=== PATIENT | female | born 2000 | race Caucasian/White ===

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

== ENCOUNTER → 2021-09-14 | Outpatient (CLI) | payer MEDICAID ==
[2021-09-14 18:45] LABS: BASO # 0.1 10^3/uL (0.0-0.2); BASO % 0.5 % (0.0-1.0); EOS # 0.1 10^3/uL (0.0-0.5); EOS % 0.5 % (0.0-3.0); HEMOGLOBIN 12.5 g/dl (12.0-15.5); LYMPH # 1.9 10^3/uL (1.5-5.0); LYMPH % 19.6 % (24.0-44.0); MEAN CORPUSCULAR HEMOGLOBIN 30.3 pg (27.0-33.0); MEAN CORPUSCULAR HGB CONC 32.9 g/dl (32.0-36.5); MEAN CORPUSCULAR VOLUME 92.2 fl (80.0-96.0); NEUTROPHILS # 6.6 10^3/uL (1.5-8.5); NEUTROPHILS % 69.1 % (36.0-66.0); PLATELET COUNT, AUTOMATED 319 10^3/uL (150-450); RED BLOOD COUNT 4.12 10^6/uL (4.00-5.40); WHITE BLOOD COUNT 9.5 10^3/uL (4.0-10.0)
[2021-09-14 18:59] LABS: HIV 1&2 SCREEN CENTAUR NEGATIVE (NEGATIVE)
[2021-09-14 19:47] LABS: GC DNA AMPLIFICATION NEGATIVE (NEGATIVE)
== END ==
LOC: M PLALAB 15:15
PROVIDERS: ATTEND Advanced Practice Midwife
DX: Z34.01 Encounter for supervision of normal first pregnancy, first trimester (principal); Z36.89 Encounter for other specified antenatal screening

== ENCOUNTER → 2021-12-02 | Outpatient (CLI) | payer OTHER | LOC: M WHC 14:32 | PROVIDERS: ATTEND Advanced Practice Midwife | DX: Z34.02 Encounter for supervision of normal first pregnancy, second trimester (principal); Z3A.19 19 weeks gestation of pregnancy; Z36.89 Encounter for other specified antenatal screening ==

== ENCOUNTER → 2022-01-25 | Outpatient (CLI) | payer OTHER | LOC: M WHC 08:06 | PROVIDERS: ATTEND Advanced Practice Midwife | DX: O99.212 Obesity complicating pregnancy, second trimester (principal); E66.9 Obesity, unspecified; O32.1XX0 Maternal care for breech presentation, not applicable or unspecified; Z3A.27 27 weeks gestation of pregnancy ==

== ENCOUNTER → 2022-02-23 | Outpatient (CLI) | payer OTHER ==
[2022-02-23 14:39] LABS: HEMATOCRIT 32.8 % (36.0-47.0); HEMOGLOBIN 10.3 g/dl (12.0-15.5); MEAN CORPUSCULAR HEMOGLOBIN 28.5 pg (27.0-33.0); MEAN CORPUSCULAR HGB CONC 31.4 g/dl (32.0-36.5); MEAN CORPUSCULAR VOLUME 90.6 fl (80.0-96.0); PLATELET COUNT, AUTOMATED 275 10^3/uL (150-450); RED BLOOD COUNT 3.62 10^6/uL (4.00-5.40); WHITE BLOOD COUNT 11.5 10^3/uL (4.0-10.0)
[2022-02-23 15:47] LABS: GC DNA AMPLIFICATION NEGATIVE (NEGATIVE)
== END ==
LOC: M PLALAB 09:03
PROVIDERS: ATTEND Specialist
DX: Z34.02 Encounter for supervision of normal first pregnancy, second trimester (principal); Z36.89 Encounter for other specified antenatal screening

== ENCOUNTER → 2022-03-24 | Outpatient (CLI) | payer OTHER, MEDICAID ==
[2022-03-24 18:25] LABS: ALBUMIN 2.5 GM/DL (3.2-5.2); ALT/SGPT 83 U/L (12-78); BILIRUBIN,TOTAL 0.5 MG/DL (0.2-1.0); BLOOD UREA NITROGEN 5 MG/DL (7-18); CARBON DIOXIDE LEVEL 21 MEQ/L (21-32); CHLORIDE LEVEL 105 MEQ/L (98-107); CREATININE FOR GFR 0.39 MG/DL (0.55-1.30); GLOMERULAR FILTRATION RATE > 60.0 (>60); GLUCOSE, FASTING 95 MG/DL (70-100); POTASSIUM SERUM 3.6 MEQ/L (3.5-5.1); SODIUM LEVEL 137 MEQ/L (136-145); TOTAL PROTEIN 6.4 GM/DL (6.4-8.2)
== END ==
LOC: M PLALAB 14:39
PROVIDERS: ATTEND Advanced Practice Midwife
DX: Z34.03 Encounter for supervision of normal first pregnancy, third trimester (principal); O99.713 Diseases of the skin and subcutaneous tissue complicating pregnancy, third trimester

== ENCOUNTER 2022-03-28 12:39 | Outpatient (CLI) | payer OTHER, MEDICAID ==
[~2022-03-28] VITALS: Ht 157.5 cm; Wt 88.9 kg
[2022-03-28 12:54] VITALS: BP 128/83
[2022-03-28] MEDS ORDERED: URSO300C3 PO (12:57)
[2022-03-28] MEDS ORDERED: FERR325T82 PO (12:57)
[2022-03-28] MEDS ORDERED: PRENTAB9 PO (12:57)
[2022-03-28] MEDS ORDERED: HOME MED LIST COMPLETE! XX SCH (13:00)
[2022-03-28] MEDS ORDERED: BETAMETHASONE SOLUSPAN 6MG/ML 5ML VIAL (J0702 PER 3MG) IM ONE (13:05)
[2022-03-29] MEDS ORDERED: BENA25CA4 PO (13:10)
== END 2022-03-28 13:43 | disposition home or self-care (01) ==
LOC: M LDO 12:39
PROVIDERS: ATTEND Obstetrics & Gynecology
DX: O26.613 Liver and biliary tract disorders in pregnancy, third trimester (principal); Z3A.36 36 weeks gestation of pregnancy; Z91.018 Allergy to other foods
CPT/HCPCS: 59025; 96372; J0702

== ENCOUNTER 2022-03-29 12:56 | Outpatient (CLI) | payer OTHER, MEDICAID ==
[~2022-03-29] VITALS: Ht 157.5 cm; Wt 89.0 kg
[~2022-03-29 12:56] MED LIST changes: +FERR325T82 PO; +PRENTAB9 PO; -PROHANCE 279.3MG/ML 15ML VIAL (A9576) As Ordered ONE; +URSO300C3 PO
[2022-03-29] MEDS ORDERED: BETAMETHASONE SOLUSPAN 6MG/ML 5ML VIAL (J0702 PER 3MG) IM ONE (13:05)
[2022-03-29] MEDS ORDERED: BENA25CA4 PO (13:10)
[2022-03-29] MEDS ORDERED: HOME MED LIST COMPLETE! XX SCH (13:10)
[2022-03-29 13:12] VITALS: BP 120/77
== END 2022-03-29 14:42 | disposition home or self-care (01) ==
LOC: M LDO 12:56
PROVIDERS: ATTEND Advanced Practice Midwife
DX: O26.613 Liver and biliary tract disorders in pregnancy, third trimester (principal); Z3A.36 36 weeks gestation of pregnancy
CPT/HCPCS: 76816; 76819; 76820; 96372; J0702

== ENCOUNTER → 2022-12-06 | Outpatient (REF) | payer OTHER, MEDICAID ==
[~2022-12-06] MED LIST changes: +ACET-683 PO; +BENA25CA4 PO; +COLA100C5 PO; +IBUP-1022 PO
== END ==
LOC: M SFHCWAGY 12:53
PROVIDERS: ATTEND Specialist
DX: Z12.4 Encounter for screening for malignant neoplasm of cervix (principal)

== ENCOUNTER → 2022-12-31 | Outpatient (CLI) | payer OTHER ==
[~2022-12-31] MED LIST changes: +PROHANCE 279.3MG/ML 15ML VIAL As Ordered ONE; +PROHANCE 279.3MG/ML 5ML VIAL As Ordered ONE
== END ==
LOC: M RAD 14:38
PROVIDERS: ATTEND Specialist
DX: M51.26 Other intervertebral disc displacement, lumbar region (principal)
CPT/HCPCS: 72158; A9576

== ENCOUNTER → 2023-04-08 | Outpatient (CLI) | payer OTHER ==
[~2023-04-08] MED LIST changes: -PROHANCE 279.3MG/ML 15ML VIAL As Ordered ONE; -PROHANCE 279.3MG/ML 5ML VIAL As Ordered ONE
[2023-04-08 14:28] LABS: HEMATOCRIT 38.5 % (36.0-47.0); HEMOGLOBIN 12.3 g/dl (12.0-15.5); MEAN CORPUSCULAR HEMOGLOBIN 29.4 pg (27.0-33.0); MEAN CORPUSCULAR HGB CONC 31.9 g/dl (32.0-36.5); MEAN CORPUSCULAR VOLUME 92.1 fl (80.0-96.0); PLATELET COUNT, AUTOMATED 312 10^3/uL (150-450); RED BLOOD COUNT 4.18 10^6/uL (4.00-5.40); WHITE BLOOD COUNT 9.5 10^3/uL (4.0-10.0)
[2023-04-08 14:59] LABS: HIV 1&2 SCREEN NEGATIVE (NEGATIVE)
[2023-04-08 15:07] LABS: HEPATITIS C VIRUS ABY INDEX 0.11 INDEX (<0.8)
[2023-04-08 15:54] LABS: GC DNA AMPLIFICATION NEGATIVE (NEGATIVE)
== END ==
LOC: M PLALAB 10:44
PROVIDERS: ATTEND Advanced Practice Midwife
DX: Z34.91 Encounter for supervision of normal pregnancy, unspecified, first trimester (principal)

== ENCOUNTER → 2023-04-19 | Outpatient (CLI) | payer OTHER ==
[2023-04-19 16:27] LABS: BASO % 0.4 % (0.0-1.0); EOS # 0.1 10^3/uL (0.0-0.5); EOS % 0.6 % (0.0-3.0); HEMATOCRIT 37.2 % (36.0-47.0); LYMPH % 20.1 % (24.0-44.0); MEAN CORPUSCULAR HEMOGLOBIN 29.4 pg (27.0-33.0); MEAN CORPUSCULAR HGB CONC 32.3 g/dl (32.0-36.5); MEAN CORPUSCULAR VOLUME 91.2 fl (80.0-96.0); MONO # 0.7 10^3/uL (0.0-0.8); NEUTROPHILS # 7.1 10^3/uL (1.5-8.5); NEUTROPHILS % 71.5 % (36.0-66.0); PLATELET COUNT, AUTOMATED 279 10^3/uL (150-450); RED BLOOD COUNT 4.08 10^6/uL (4.00-5.40)
[2023-04-19 16:47] LABS: ERYTHROCYTE SEDIMENTATION RATE 50 mm/hr (0-20)
[2023-04-19 16:56] LABS: C REACTIVE PROTEIN QUANTITATIV 2.4 MG/DL (<1.0)
[2023-04-19 16:59] LABS: FREE T4 1.06 NG/DL (0.89-1.76); THYROID STIMULATING HORMONE 0.575 uIU/ML (0.55-4.78)
[2023-04-19 17:00] LABS: RHEUMATOID FACTOR QUANT 4.9 IU/ML (<14)
== END ==
LOC: M PLALAB 14:17
PROVIDERS: ATTEND Orthopaedic Surgery
DX: G56.01 Carpal tunnel syndrome, right upper limb (principal)

== ENCOUNTER → 2023-05-03 | Outpatient (CLI) | payer OTHER | LOC: M PLALAB 10:32 | PROVIDERS: ATTEND Orthopaedic Surgery | DX: M47.896 Other spondylosis, lumbar region (principal) ==

== ENCOUNTER → 2023-06-13 | Outpatient (CLI) | payer OTHER | LOC: M WHC 14:33 | PROVIDERS: ATTEND Specialist | DX: Z34.82 Encounter for supervision of other normal pregnancy, second trimester (principal); Z3A.19 19 weeks gestation of pregnancy ==

== ENCOUNTER → 2023-07-27 | Outpatient (CLI) | payer OTHER | LOC: M RAD 09:39 | PROVIDERS: ATTEND Specialist | DX: Z34.82 Encounter for supervision of other normal pregnancy, second trimester (principal); Z3A.25 25 weeks gestation of pregnancy ==

== ENCOUNTER → 2023-08-08 | Outpatient (CLI) | payer OTHER ==
[2023-08-08 17:39] LABS: HEMOGLOBIN 11.1 g/dl (12.0-15.5); MEAN CORPUSCULAR HEMOGLOBIN 29.7 pg (27.0-33.0); MEAN CORPUSCULAR HGB CONC 31.7 g/dl (32.0-36.5); MEAN CORPUSCULAR VOLUME 93.6 fl (80.0-96.0); PLATELET COUNT, AUTOMATED 272 10^3/uL (150-450); RED BLOOD COUNT 3.74 10^6/uL (4.00-5.40)
[2023-08-08 18:09] LABS: ALBUMIN 2.8 G/DL (3.2-5.2); ALKALINE PHOSPHATASE 150 U/L (46-116); ALT/SGPT 13 U/L (7.0-40); AST/SGOT < 8 U/L (<34); BILIRUBIN,DIRECT < 0.1 MG/DL (<0.4); BILIRUBIN,TOTAL 0.2 MG/DL (0.3-1.2); GLUCOSE CHALLENGE TEST 1 HOUR 84 MG/DL (LESS THAN 140); TOTAL PROTEIN 6.3 G/DL (5.7-8.2)
[2023-08-08 19:00] LABS: CHLAMYDIA DNA AMPLIFICATION NEGATIVE (NEGATIVE); GC DNA AMPLIFICATION NEGATIVE (NEGATIVE)
== END ==
LOC: M PLALAB 14:54
PROVIDERS: ATTEND Specialist
DX: Z34.82 Encounter for supervision of other normal pregnancy, second trimester (principal)

== ENCOUNTER → 2023-09-12 | Outpatient (CLI) | payer OTHER | LOC: M WHC 12:57 | PROVIDERS: ATTEND Specialist | DX: Z34.82 Encounter for supervision of other normal pregnancy, second trimester (principal) ==

== ENCOUNTER → 2023-09-27 | Outpatient (CLI) | payer OTHER ==
[2023-09-27 15:03] LABS: ALBUMIN 2.3 G/DL (3.2-5.2); BILIRUBIN,DIRECT 0.1 MG/DL (<0.4); BILIRUBIN,TOTAL 0.3 MG/DL (0.3-1.2)
== END ==
LOC: M PLALAB 11:19
PROVIDERS: ATTEND Advanced Practice Midwife
DX: L29.9 Pruritus, unspecified (principal); Z34.93 Encounter for supervision of normal pregnancy, unspecified, third trimester

== ENCOUNTER 2023-10-03 08:37 | Emergency (ER) | payer OTHER ==
[2023-10-03 11:14] LABS: BASO % 0.2 % (0.0-1.0); EOS # 0.1 10^3/uL (0.0-0.5); EOS % 0.8 % (0.0-3.0); HEMATOCRIT 36.5 % (36.0-47.0); HEMOGLOBIN 11.7 g/dl (12.0-15.5); LYMPH # 1.7 10^3/uL (1.5-5.0); LYMPH % 16.1 % (24.0-44.0); MEAN CORPUSCULAR HEMOGLOBIN 29.2 pg (27.0-33.0); MEAN CORPUSCULAR HGB CONC 32.1 g/dl (32.0-36.5); MONO # 0.9 10^3/uL (0.0-0.8); MONO % 8.4 % (2.0-8.0); NEUTROPHILS # 7.9 10^3/uL (1.5-8.5); NEUTROPHILS % 74.1 % (36.0-66.0); PLATELET COUNT, AUTOMATED 238 10^3/uL (150-450); RED BLOOD COUNT 4.01 10^6/uL (4.00-5.40); WHITE BLOOD COUNT 10.7 10^3/uL (4.0-10.0)
[2023-10-03] MEDS ORDERED: ISOVUE-370 76% 100ML VIAL As Ordered ONE (11:19)
[2023-10-03 11:48] LABS: CK-MB VALUE MASS 1.3 NG/ML (<3.6); LIPASE 31 U/L (12-53)
[2023-10-03 11:52] LABS: FREE T4 0.83 NG/DL (0.89-1.76); THYROID STIMULATING HORMONE 2.052 uIU/ML (0.55-4.78)
[2023-10-03 11:58] LABS: ALBUMIN 2.4 G/DL (3.2-5.2); ALKALINE PHOSPHATASE 310 U/L (46-116); ALT/SGPT 78 U/L (7.0-40); AST/SGOT 41 U/L (<34); BILIRUBIN,DIRECT 0.1 MG/DL (<0.4); BILIRUBIN,TOTAL 0.4 MG/DL (0.3-1.2); BLOOD UREA NITROGEN < 5 MG/DL (9-23); CALCIUM LEVEL 8.6 MG/DL (8.5-10.1); CARBON DIOXIDE LEVEL 25 MMOL/L (20-31); CHLORIDE LEVEL 108 MMOL/L (98-107); CPK CREATINE PHOSPHOKINASE 79 U/L (34-145); CREATININE FOR GFR 0.37 MG/DL (0.55-1.30); GLOMERULAR FILTRATION RATE > 60.0 (>60); GLUCOSE, FASTING 90 MG/DL (60-100); MB/CK RELATIVE INDEX 1.64 (< OR =4); POTASSIUM SERUM 3.8 MMOL/L (3.5-5.1); SODIUM LEVEL 140 MMOL/L (136-145)
[2023-10-03] MEDS: NS 500 ML IV ONE (12:40)
[2023-10-03 12:42] LABS: INR 1.06; PARTIAL THROMBOPLASTIN TIME 26.6 SECONDS (24.8-34.2); PROTHROMBIN TIME 13.5 SECONDS (12.5-14.5)
[2023-10-03 12:43] LABS: RSV AMPLIFICATION NEGATIVE (NEGATIVE)
[2023-10-03 12:52] LABS: CK-MB VALUE MASS 1.2 NG/ML (<3.6)
[2023-10-03 12:53] LABS: MB/CK RELATIVE INDEX 1.51 (< OR =4)
[2023-10-03 13:22] VITALS: O2SAT 99
[2023-10-03 13:30] VITALS: BP 124/64
[2023-10-03 14:00] VITALS: TEMP 97.3
[2023-10-03] MEDS ORDERED: ZOLO25TA PO (14:28)
[2023-10-03] MEDS ORDERED: CYCL-707 PO (16:44)
== END 2023-10-03 14:13 | disposition admitted as inpatient to this hospital (09) ==
LOC: M ED 08:37
DX: O26.613 Liver and biliary tract disorders in pregnancy, third trimester (principal); M25.512 Pain in left shoulder; R16.1 Splenomegaly, not elsewhere classified; Z3A.37 37 weeks gestation of pregnancy; Z91.018 Allergy to other foods
CPT/HCPCS: 71275; 80047; 80048; 80076; 82550; 82553; 83690; 84439; 84443; 85025; 85610; 85730; 87631; 93005; 93041; 94760; 96360; 99285; Q9967

== ENCOUNTER 2023-10-03 14:10 | Outpatient (CLI) | payer OTHER ==
[~2023-10-03] VITALS: Ht 157.5 cm; Wt 94.6 kg
[2023-10-03 14:25] VITALS: BP 133/76
[2023-10-03] MEDS ORDERED: ZOLO25TA PO (14:28)
[2023-10-03] MEDS ORDERED: CYCL-707 PO (16:44)
== END 2023-10-03 16:33 | disposition home or self-care (01) ==
LOC: M LDO 14:10
PROVIDERS: ATTEND Advanced Practice Midwife
DX: O26.893 Other specified pregnancy related conditions, third trimester (principal); O26.63 Liver and biliary tract disorders in the puerperium; M51.26 Other intervertebral disc displacement, lumbar region; M79.602 Pain in left arm; R07.9 Chest pain, unspecified; K83.1 Obstruction of bile duct; Z3A.35 35 weeks gestation of pregnancy; Z87.440 Personal history of urinary (tract) infections
CPT/HCPCS: 59025; 76700; 83690; G0463

== ENCOUNTER 2023-10-06 10:01 | Outpatient (CLI) | payer OTHER ==
[~2023-10-06] VITALS: Ht 157.5 cm; Wt 95.4 kg
[~2023-10-06 10:01] MED LIST changes: +CYCL-707 PO; +ZOLO25TA PO
[2023-10-06] MEDS ORDERED: HOME MED LIST COMPLETE! XX SCH (10:25)
[2023-10-06 10:27] VITALS: BP 130/78
[2023-10-06] MEDS: BETAMETHASONE SOLUSPAN 6MG/ML 5ML VIAL IM ONE (11:10)
== END 2023-10-06 11:35 | disposition home or self-care (01) ==
LOC: M LDO 10:01
PROVIDERS: ATTEND Obstetrics & Gynecology
DX: O26.613 Liver and biliary tract disorders in pregnancy, third trimester (principal); K83.1 Obstruction of bile duct; Z3A.36 36 weeks gestation of pregnancy
CPT/HCPCS: 59025; 76815; 87081; 96372; G0463; J0702

== ENCOUNTER 2023-10-07 10:46 | Outpatient (CLI) | payer OTHER ==
[~2023-10-07] VITALS: Ht 157.5 cm; Wt 95.4 kg
[2023-10-07] MEDS: BETAMETHASONE SOLUSPAN 6MG/ML 5ML VIAL IM ONE (11:12)
== END 2023-10-07 11:15 | disposition home or self-care (01) ==
LOC: M LDO 10:46
PROVIDERS: ATTEND Advanced Practice Midwife
DX: O26.63 Liver and biliary tract disorders in the puerperium (principal); K83.1 Obstruction of bile duct; Z3A.36 36 weeks gestation of pregnancy
CPT/HCPCS: 96372; J0702

== ENCOUNTER 2023-10-13 07:35 | Inpatient (IN) | payer OTHER ==
[2023-10-13] VITALS (21 sets, daily range): BP systolic 116–164; BP diastolic 68–97
[~2023-10-13] VITALS: Ht 157.5 cm; Wt 95.2 kg
[2023-10-13] MEDS ORDERED: HOME MED LIST COMPLETE! XX SCH (08:10)
[2023-10-13] MEDS ORDERED: TRANEXAMIC ACID INJection 1,000 MG in NS 100 ML IV PRN (08:55)
[2023-10-13] MEDS ORDERED: LIDOCAINE 1% MDV 20ML VIAL INFIL PRN (08:55)
[2023-10-13] MEDS ORDERED: METHYLERGONOVINE MALEATE 0.2MG/ML 1ML VIAL IM PRN (08:55)
[2023-10-13 09:11] LABS: HEMATOCRIT 35.1 % (36.0-47.0); HEMOGLOBIN 11.2 g/dl (12.0-15.5); MEAN CORPUSCULAR HEMOGLOBIN 29.4 pg (27.0-33.0); MEAN CORPUSCULAR HGB CONC 31.9 g/dl (32.0-36.5); MEAN CORPUSCULAR VOLUME 92.1 fl (80.0-96.0); PLATELET COUNT, AUTOMATED 255 10^3/uL (150-450); RED BLOOD COUNT 3.81 10^6/uL (4.00-5.40); WHITE BLOOD COUNT 9.7 10^3/uL (4.0-10.0)
[2023-10-13] MEDS: miSOPROStol 50MCG 1/2 TABLET PO SCH (09:19)
[2023-10-13 10:51] LABS: LDH LACTATE DEHYDROGENASE 185 U/L (120-246)
[2023-10-13 10:53] LABS: ALT/SGPT 124 U/L (7.0-40); AST/SGOT 51 U/L (<34); BILIRUBIN,TOTAL 0.4 MG/DL (0.3-1.2); CREATININE FOR GFR 0.29 MG/DL (0.55-1.30); GLOMERULAR FILTRATION RATE > 60.0 (>60)
[2023-10-13 10:55] LABS: URIC ACID 4.7 MG/DL (3.1-7.8)
[2023-10-13 14:12] LABS: CREATININE,RANDOM URINE 37.7 MG/DL
[2023-10-13 14:13] LABS: TOTAL PROTEIN,RANDOM URINE < 6.0 MG/DL (0.0-14.0)
[2023-10-13] MEDS: OXYTOCIN DRIP 30 UNITS in IV 1 EA IV SCH (21:31)
[2023-10-13] MEDS: LR 1,000 ML IV SCH (21:31)
[2023-10-13] MEDS: BUTORPHANOL 2 MG/ML 1ML VIAL IV ONE (23:03)
[2023-10-13] MEDS: PROMETHAZINE 25MG/ML 1ML VIAL IV ONE (23:03)
[2023-10-14] VITALS (15 sets, daily range): BP systolic 116–154; BP diastolic 59–87; O2SAT 97
[2023-10-14] MEDS: PROMETHAZINE 25MG/ML 1ML VIAL IV ONE (04:25)
[2023-10-14] MEDS: BUTORPHANOL 2 MG/ML 1ML VIAL IV ONE (04:25)
[2023-10-14] MEDS: OXYTOCIN DRIP 30 UNITS in IV 1 EA IV PRN (07:10)
[2023-10-14] MEDS: OXYTOCIN DRIP 30 UNITS in IV 1 EA IV SCH (07:20)
[2023-10-14] MEDS ORDERED: MOM 30ML SUSPENSION UDC PO PRN (07:20)
[2023-10-14] MEDS ORDERED: ACETAMINOPHEN TAB 650MG DOSE (2X325MG) PO PRN (07:20)
[2023-10-14] MEDS ORDERED: IBUPROFEN 600MG TAB PO PRN (07:20)
[2023-10-14] MEDS ORDERED: DIBUCAINE 1% OINTMENT 30GM TOP PRN (07:20)
[2023-10-14] MEDS ORDERED: METHYLERGONOVINE MALEATE 0.2 MG TAB PO PRN (07:20)
[2023-10-14] MEDS ORDERED: RHOGAM 300MCG (1500IU) INJ IM SCH (07:20)
[2023-10-14] MEDS ORDERED: ANUSOL HC CREAM 30GM TOP PRN (07:20)
[2023-10-14] MEDS: PRENATAL VITAMINS CHEWABLE TABLET PO SCH (09:00)
[2023-10-14] MEDS: IBUPROFEN 800 MG TAB PO PRN (09:38)
[2023-10-14] MEDS: ACETAMINOPHEN 500 MG TAB PO PRN (10:51)
[2023-10-15 06:00] VITALS: BP 107/56; O2SAT 98
[2023-10-15] MEDS: DOCUSATE SODIUM 100MG CAPSULE PO PRN (08:01)
[2023-10-15 08:08] VITALS: BP 107/56; TEMP 97.1; O2SAT 98
[2023-10-15] MEDS ORDERED: IBUP80TA PO (10:34)
[2023-10-16] MEDS ORDERED: MEASLES,MUMPS,RUBELLA VACCINE INJ (MMR-II) SC.IMMUN ONE (09:00)
== END 2023-10-15 13:35 | disposition home or self-care (01) | DRG 560 ==
LOC: M LDI 07:35 → M OBS 10-14 09:27
PROVIDERS: ADMIT Obstetrics & Gynecology; ATTEND Obstetrics & Gynecology
PROC: 3E033VJ Introduction of Other Hormone into Peripheral Vein, Percutaneous Approach (ICD-10-PCS; 2023-10-13)
PROC: 10E0XZZ Delivery of Products of Conception, External Approach (ICD-10-PCS; principal; 2023-10-14)
DX: O26.643 Intrahepatic cholestasis of pregnancy, third trimester (principal); O69.81X0 Labor and delivery complicated by cord around neck, without compression, not applicable or unspecified; Z3A.37 37 weeks gestation of pregnancy; Z79.899 Other long term (current) drug therapy; Z37.0 Single live birth

== ENCOUNTER → 2023-12-23 | Outpatient (REF) | payer OTHER ==
[~2023-12-23] MED LIST changes: +IBUP80TA PO
== END ==
LOC: M SFHCRHEU 08:54
PROVIDERS: ATTEND Internal Medicine
DX: M25.50 Pain in unspecified joint (principal); R70.0 Elevated erythrocyte sedimentation rate; R79.82 Elevated C-reactive protein (CRP)

== ENCOUNTER → 2024-02-25 | Outpatient (CLI) | payer OTHER | LOC: M RAD 12:49 | PROVIDERS: ATTEND Internal Medicine | DX: M25.561 Pain in right knee (principal); M25.562 Pain in left knee; M25.571 Pain in right ankle and joints of right foot; M25.572 Pain in left ankle and joints of left foot; M79.641 Pain in right hand; M79.642 Pain in left hand ==

== ENCOUNTER → 2024-03-15 | Outpatient (CLI) | payer OTHER | LOC: M PLAIMG 06:46 | PROVIDERS: ATTEND Internal Medicine | DX: M79.641 Pain in right hand (principal) ==

== ENCOUNTER → 2024-03-27 | Outpatient (REF) | payer OTHER | LOC: M PLALAB 10:46 | PROVIDERS: ATTEND Specialist | DX: Z01.419 Encounter for gynecological examination (general) (routine) without abnormal findings (principal) ==

== ENCOUNTER 2024-06-08 07:03 | Day surgery (SDC) | payer OTHER ==
[~2024-06-08] VITALS: Ht 157.5 cm; Wt 90.7 kg
[~2024-06-08 07:03] MED LIST changes: +ADVI200T PO; +ETON1VAG7 VA; +SERT50TA29 PO
[2024-06-08] MEDS ORDERED: MIDAZOLAM INJ 2MG/2ML VIAL As Ordered ONE (08:04)
[2024-06-08] MEDS ORDERED: ONDANSETRON 4MG 2ML VIAL As Ordered ONE (08:05)
[2024-06-08] MEDS ORDERED: LIDOCAINE 2% 100MG/5ML SDV (FOR ANES.) As Ordered ONE (08:05)
[2024-06-08] MEDS ORDERED: fentaNYL 100 MCG/2 ML INJECTION As Ordered ONE (08:05)
[2024-06-08] MEDS ORDERED: propofoL 200 MG/20 ML VIAL As Ordered ONE (08:05)
[2024-06-08] MEDS ORDERED: KETOROLAC 60MG 2ML VIAL As Ordered ONE (08:05)
[2024-06-08] MEDS: ceFAZolin SOD 2 GM in IV 1 EA IV ONE (08:52)
[2024-06-08] MEDS ORDERED: ESMOLOL INJ 100MG/10ML VIAL As Ordered ONE (09:06)
[2024-06-08] MEDS ORDERED: PHENYLephrine 500MCG 5ML (100MCG/ML) SYRINGE As Ordered ONE (09:11)
[2024-06-08] MEDS ORDERED: HYDROMORPHONE HCL 0.5 MG/ 0.5 ML SYRINGE IV PRN (10:10)
[2024-06-08] MEDS ORDERED: diphenhydrAMINE 50MG/ML VIAL IV PRN (10:10)
[2024-06-08] MEDS: fentaNYL 100 MCG/2 ML INJECTION IV PRN (10:24)
[2024-06-08] MEDS: oxyCODONE 5MG TAB PO PRN (10:46)
[2024-06-08] MEDS: MEPERIDINE 25 MG/ML 1ML VIAL IV PRN (10:48)
[2024-06-08] MEDS: ONDANSETRON 4MG 2ML VIAL IV PRN (11:29)
[2024-06-08] MEDS ORDERED: traMADol 50 MG TAB PO PRN (11:40)
[2024-06-08] MEDS ORDERED: NS 250 ML IV SCH (12:00)
[2024-06-08] MEDS: METOCLOPRAMIDE INJ 10MG/2ML VIAL IV PRN (12:02)
[2024-06-08 12:52] VITALS: BP 115/58; TEMP 97; O2SAT 96
[2024-06-08] MEDS ORDERED: KETOROLAC 30 MG/ML 1ML VIAL IV SCH (16:00)
== END 2024-06-08 13:00 | disposition home or self-care (01) ==
LOC: M SDC 07:03
PROVIDERS: ATTEND Surgery
DX: K80.10 Calculus of gallbladder with chronic cholecystitis without obstruction (principal); F41.9 Anxiety disorder, unspecified; K90.41 Non-celiac gluten sensitivity; Z79.899 Other long term (current) drug therapy
CPT/HCPCS: 47562; 81025; 88304; J0665; J0690; J1100; J1805; J1885; J2175; J2250; J2371; J2405; J2765; J3010

== ENCOUNTER 2024-07-20 21:59 | Inpatient (IN) | payer OTHER ==
[~2024-07-20] VITALS: Ht 157.5 cm; Wt 92.9 kg
[2024-07-20 23:05] LABS: BASO % 0.2 % (0.0-1.0); EOS # 0.1 10^3/uL (0.0-0.5); EOS % 0.9 % (0.0-3.0); HEMATOCRIT 44.4 % (36.0-47.0); HEMOGLOBIN 14.8 g/dl (12.0-15.5); LYMPH # 1.1 10^3/uL (1.5-5.0); LYMPH % 8.5 % (24.0-44.0); MEAN CORPUSCULAR HEMOGLOBIN 29.9 pg (27.0-33.0); MEAN CORPUSCULAR HGB CONC 33.3 g/dl (32.0-36.5); MEAN CORPUSCULAR VOLUME 89.7 fl (80.0-96.0); MONO # 0.8 10^3/uL (0.0-0.8); NEUTROPHILS # 10.8 10^3/uL (1.5-8.5); NEUTROPHILS % 83.9 % (36.0-66.0); PLATELET COUNT, AUTOMATED 297 10^3/uL (150-450); RED BLOOD COUNT 4.95 10^6/uL (4.00-5.40); WHITE BLOOD COUNT 12.9 10^3/uL (4.0-10.0)
[2024-07-20] MEDS: ONDANSETRON 4MG 2ML VIAL IV ONE (23:15)
[2024-07-20] MEDS: ACETAMINOPHEN *IV* 1,000 MG in IV 1 EA IV ONE (23:16)
[2024-07-20 23:21] LABS: LIPASE 37 U/L (12-53)
[2024-07-20 23:24] LABS: ALBUMIN 3.7 G/DL (3.2-5.2); ALKALINE PHOSPHATASE 165 U/L (35-104); ALT/SGPT 44 U/L (7.0-40); AST/SGOT 31 U/L (<34); BILIRUBIN,DIRECT 0.1 MG/DL (<0.4); BILIRUBIN,TOTAL 0.5 MG/DL (0.3-1.2); BLOOD UREA NITROGEN 12 MG/DL (9-23); CARBON DIOXIDE LEVEL 23 MMOL/L (20-31); CHLORIDE LEVEL 104 MMOL/L (98-107); CREATININE FOR GFR 0.52 MG/DL (0.55-1.30); GLOMERULAR FILTRATION RATE > 60.0 (>60); GLUCOSE, FASTING 96 MG/DL (60-100); POTASSIUM SERUM 4.3 MMOL/L (3.5-5.1); SODIUM LEVEL 140 MMOL/L (136-145)
[2024-07-20 23:32] LABS: HCG, SERUM QUALITATIVE NEGATIVE (NEGATIVE)
[2024-07-20 23:47] LABS: INR 0.96; PROTHROMBIN TIME 13.1 SECONDS (12.5-14.5)
[2024-07-20] MEDS: SODIUM CHLORIDE 0.9% 1000 ML IV STA (23:50)
[2024-07-20] MEDS: PIPERACILLIN/TAZOBACTAM SOD 3.375 GM in DEXTROSE 5% (D5W) ADV/MINI-BAG 50 ML IV ONE (23:57)
[2024-07-21 00:21] LABS: ABG BASE EXCESS -2.2 (-2.0-2.0); ABG HCO3 20.7 MMOL/L (22.0-26.0); ABG O2 SATURATION 97.7 % (95.0-99.0); ABG PARTIAL PRESSURE CO2 30.4 mmHg (35.0-45.0); ABG PARTIAL PRESSURE O2 112.3 mmHg (75.0-100.0); ABG STANDARD HCO3 22.7 MMOL/L. (22.0-26.0); ABG TOTAL CO2 21.6 MMOL/L (22.0-29.0); ABG pH (ARTERIAL) 7.451 UNITS (7.350-7.450)
[2024-07-21] MEDS: ONDANSETRON 4MG 2ML VIAL IV ONE (01:03)
[2024-07-21] MEDS ORDERED: HOME MED LIST COMPLETE! XX SCH (01:50)
[2024-07-21] MEDS ORDERED: MORPHINE 4 MG/ML 1ML VIAL As Ordered ONE (02:04)
[2024-07-21] MEDS ORDERED: METOCLOPRAMIDE INJ 10MG/2ML VIAL IV ONE (02:10)
[2024-07-21] MEDS: MORPHINE 4 MG/ML 1ML VIAL IV ONE (02:25)
[2024-07-21] MEDS: METOCLOPRAMIDE INJ 10MG/2ML VIAL IV ONE (02:26)
[2024-07-21] MEDS ORDERED: ISOVUE-370 76% 100ML VIAL As Ordered ONE (05:40)
[2024-07-21] MEDS: ACETAMINOPHEN *IV* 1,000 MG in IV 1 EA IV ONE (08:00)
[2024-07-21] MEDS: NS (Normal Saline) 0.9% 1,000 ML IV ONE (08:45)
[2024-07-21] MEDS: PIPERACILLIN/TAZOBACTAM SOD 4.5 GM in DEXTROSE 5% (D5W) ADV/MINI-BAG 50 ML IV ONE (10:41)
[2024-07-21] MEDS: PANTOPRAZOLE 40MG VIAL IV SCH (11:59)
[2024-07-21 14:30] VITALS: BP 115/69; TEMP 99.1; O2SAT 98
[2024-07-21] MEDS: ONDANSETRON 4MG 2ML VIAL IV PRN (14:57)
[2024-07-21] MEDS: ACETAMINOPHEN *IV* 1,000 MG in IV 1 EA IV PRN (14:58)
[2024-07-21] MEDS: LOPERAMIDE 2 MG CAPLET PO ONE (18:18)
[2024-07-21] MEDS: LR 1,000 ML IV SCH (18:18)
[2024-07-21] MEDS: METOCLOPRAMIDE INJ 10MG/2ML VIAL IV PRN (18:28)
[2024-07-21 19:52] VITALS: BP 114/68; TEMP 101.2; O2SAT 96
[2024-07-21] MEDS: IBUPROFEN 600MG TAB PO ONE (21:11)
[2024-07-21 22:40] VITALS: TEMP 99
[2024-07-21 23:32] VITALS: TEMP 97.7
[2024-07-22 01:58] VITALS: TEMP 97.5
[2024-07-22 04:04] VITALS: BP 101/61; TEMP 97.8; O2SAT 96
[2024-07-22 06:29] VITALS: BP 109/64; TEMP 98.4
[2024-07-22 08:13] LABS: ALBUMIN 2.3 G/DL (3.2-5.2); ALKALINE PHOSPHATASE 96 U/L (35-104); ALT/SGPT 19 U/L (7.0-40); AST/SGOT 9 U/L (<34); BILIRUBIN,TOTAL 0.3 MG/DL (0.3-1.2); BLOOD UREA NITROGEN 6 MG/DL (9-23); CALCIUM LEVEL 7.9 MG/DL (8.5-10.1); CARBON DIOXIDE LEVEL 24 MMOL/L (20-31); CHLORIDE LEVEL 107 MMOL/L (98-107); CREATININE FOR GFR 0.42 MG/DL (0.55-1.30); GLOMERULAR FILTRATION RATE > 60.0 (>60); GLUCOSE, FASTING 81 MG/DL (60-100); POTASSIUM SERUM 2.8 MMOL/L (3.5-5.1); SODIUM LEVEL 141 MMOL/L (136-145); TOTAL PROTEIN 5.4 G/DL (5.7-8.2)
[2024-07-22] MEDS: KCL 10MEQ/100ML SWI (KRUN) 10 MEQ in IV 1 EA IV SCH (08:34)
[2024-07-22] MEDS: POTASSIUM CHLORIDE 10MEQ SR TABLET PO ONE ×3 (08:34→15:09)
[2024-07-22 12:00] VITALS: BP 111/66; TEMP 97.6; O2SAT 98
[2024-07-22] MEDS: LOPERAMIDE 2 MG CAPLET PO PRN (14:10)
[2024-07-22 20:00] VITALS: BP 110/69; O2SAT 98
[2024-07-22 20:28] VITALS: TEMP 98.7
[2024-07-22] MEDS: POTASSIUM CHLORIDE 10MEQ SR TABLET PO SCH (20:29)
[2024-07-22] MEDS: KCL 40MEQ in NS 1000ML 1,000 ML IV SCH (21:18)
[2024-07-22] MEDS: SIMETHICONE 80MG CHEW TAB PO PRN (21:18)
[2024-07-22 21:35] LABS: IONIZED CALCIUM 4.5 MG/DL (4.5-5.3)
[2024-07-22 22:06] LABS: BLOOD UREA NITROGEN < 5 MG/DL (9-23); CALCIUM LEVEL 8.4 MG/DL (8.5-10.1); CARBON DIOXIDE LEVEL 24 MMOL/L (20-31); CHLORIDE LEVEL 110 MMOL/L (98-107); CREATININE FOR GFR 0.46 MG/DL (0.55-1.30); GLOMERULAR FILTRATION RATE > 60.0 (>60); GLUCOSE, FASTING 94 MG/DL (60-100); MAGNESIUM LEVEL 1.8 MG/DL (1.8-2.4); POTASSIUM SERUM 3.3 MMOL/L (3.5-5.1); SODIUM LEVEL 143 MMOL/L (136-145)
[2024-07-23 01:46] VITALS: O2SAT 92
[2024-07-23 03:59] VITALS: BP 110/70; TEMP 98.3; O2SAT 97
[2024-07-23 05:28] LABS: BASO % 0.3 % (0.0-1.0); EOS # 0.2 10^3/uL (0.0-0.5); EOS % 2.3 % (0.0-3.0); HEMATOCRIT 37.3 % (36.0-47.0); LYMPH # 1.9 10^3/uL (1.5-5.0); LYMPH % 26.9 % (24.0-44.0); MEAN CORPUSCULAR HEMOGLOBIN 29.2 pg (27.0-33.0); MEAN CORPUSCULAR HGB CONC 32.2 g/dl (32.0-36.5); MEAN CORPUSCULAR VOLUME 90.8 fl (80.0-96.0); MONO # 0.7 10^3/uL (0.0-0.8); MONO % 9.6 % (2.0-8.0); NEUTROPHILS # 4.2 10^3/uL (1.5-8.5); NEUTROPHILS % 60.6 % (36.0-66.0); PLATELET COUNT, AUTOMATED 231 10^3/uL (150-450); RED BLOOD COUNT 4.11 10^6/uL (4.00-5.40)
[2024-07-23 05:49] LABS: ALBUMIN 2.5 G/DL (3.2-5.2); ALKALINE PHOSPHATASE 93 U/L (35-104); ALT/SGPT 29 U/L (7.0-40); AST/SGOT 20 U/L (<34); BILIRUBIN,DIRECT < 0.1 MG/DL (<0.4); BILIRUBIN,TOTAL 0.2 MG/DL (0.3-1.2); BLOOD UREA NITROGEN < 5 MG/DL (9-23); CALCIUM LEVEL 8.3 MG/DL (8.5-10.1); CARBON DIOXIDE LEVEL 21 MMOL/L (20-31); CHLORIDE LEVEL 113 MMOL/L (98-107); GLOMERULAR FILTRATION RATE > 60.0 (>60); GLUCOSE, FASTING 92 MG/DL (60-100); MAGNESIUM LEVEL 1.8 MG/DL (1.8-2.4); POTASSIUM SERUM 4.2 MMOL/L (3.5-5.1); SODIUM LEVEL 143 MMOL/L (136-145); TOTAL PROTEIN 5.7 G/DL (5.7-8.2)
[2024-07-23] MEDS: POTASSIUM CHLORIDE 10MEQ SR TABLET PO SCH (09:00)
[2024-07-23] MEDS ORDERED: SIME80TA16 PO (11:02)
[2024-07-23] MEDS ORDERED: ONDA-282 PO (11:02)
== END 2024-07-23 12:34 | disposition home or self-care (01) | DRG 249 ==
LOC: M ED 21:59 → M ED INP 07-21 10:15 → M MSPAV 07-21 14:23
PROVIDERS: ADMIT Internal Medicine Nephrology; ATTEND Internal Medicine Nephrology
DX: A08.11 Acute gastroenteropathy due to Norwalk agent (principal); E86.0 Dehydration; E87.6 Hypokalemia; Z79.899 Other long term (current) drug therapy; Z90.49 Acquired absence of other specified parts of digestive tract

== ENCOUNTER → 2024-09-21 | Outpatient (REF) | payer OTHER, MEDICAID ==
[~2024-09-21] MED LIST changes: +ONDA-282 PO; +SIME80TA16 PO
== END ==
LOC: M LAB REF 16:11
PROVIDERS: ATTEND Nurse Practitioner Family
DX: R30.0 Dysuria (principal)

== ENCOUNTER → 2024-10-24 | Outpatient (REF) | payer OTHER | LOC: M SFHCWAGY 16:55 | PROVIDERS: ATTEND Specialist | DX: R30.0 Dysuria (principal); N89.8 Other specified noninflammatory disorders of vagina ==

== ENCOUNTER → 2024-11-06 | Outpatient (REF) | payer OTHER | LOC: M LAB REF 19:25 | PROVIDERS: ATTEND Physician Assistant | DX: N76.0 Acute vaginitis (principal) ==

== ENCOUNTER → 2024-11-09 | Outpatient (CLI) | payer OTHER | LOC: M RAD 14:43 | PROVIDERS: ATTEND Specialist | DX: R10.2 Pelvic and perineal pain (principal); N39.0 Urinary tract infection, site not specified ==

== ENCOUNTER 2025-03-26 11:28 | Day surgery (SDC) | payer OTHER ==
[~2025-03-26] VITALS: Ht 157.5 cm; Wt 93.0 kg
[~2025-03-26 11:28] MED LIST changes: +CLAR10CA3 PO; +FLON1SPR; -IBUP-1022 PO; +IBUP600T42 PO; +MELO15TA28 PO; +MONT10TA97 PO; +PROBCAP2 PO; +VENL37.598 PO
[2025-03-26] MEDS ORDERED: FAMOTIDINE 20 MG/2 ML VIAL IVP ONE (12:00)
[2025-03-26] MEDS ORDERED: MORPHINE 2 MG/ML 1 ML VIAL IV PRN (12:00)
[2025-03-26] MEDS ORDERED: HYDROMORPHONE HCL 0.5 MG/0.5 ML SYRINGE IV PRN (12:00)
[2025-03-26] MEDS ORDERED: ACETAMINOPHEN *IV* 1,000 MG in IV 1 EA IV ONE (12:00)
[2025-03-26] MEDS ORDERED: LR 1,000 ML IV SCH (12:00)
[2025-03-26] MEDS: LR 1,000 ML IV SCH (12:20)
[2025-03-26] MEDS ORDERED: FAMOTIDINE IV BAG 20 MG in IV 1 EA IV ONE (12:30)
[2025-03-26] MEDS: GABAPENTIN 300 MG CAP PO ONE (12:44)
[2025-03-26] MEDS: SCOPOLAMINE 1MG TRANSDERMAL PATCH TOP ONE (12:45)
[2025-03-26] MEDS ORDERED: MIDAZOLAM INJ 2 MG/2 ML VIAL As Ordered ONE (13:01)
[2025-03-26] MEDS ORDERED: ROCURONIUM BROMIDE 50MG/5ML VIAL As Ordered ONE (13:01)
[2025-03-26] MEDS ORDERED: LIDOCAINE 2% 100 MG/5 ML SDV (FOR ANES.) As Ordered ONE (13:01)
[2025-03-26] MEDS ORDERED: ONDANSETRON 4MG 2ML VIAL As Ordered ONE (13:01)
[2025-03-26] MEDS ORDERED: dexAMETHasone 4 MG/ML 1 ML VIAL As Ordered ONE (13:01)
[2025-03-26] MEDS ORDERED: FAMOTIDINE 20 MG/2 ML VIAL As Ordered ONE (13:48)
[2025-03-26 13:53] LABS: PLATELET COUNT, AUTOMATED 332 10^3/uL (150-450)
[2025-03-26] MEDS ORDERED: IBUP600T42 PO (15:23)
[2025-03-26] MEDS ORDERED: OXYC1TAB23 PO (15:25)
[2025-03-26] MEDS ORDERED: HYDROmorphone HCL 2 MG/ML 1 ML VIAL As Ordered ONE (15:35)
[2025-03-26] MEDS ORDERED: ESMOLOL 100 MG/10 ML VIAL As Ordered ONE (15:44)
[2025-03-26] MEDS ORDERED: ACETAMINOPHEN 1000MG/100ML IV BAG As Ordered ONE (15:47)
[2025-03-26] MEDS ORDERED: SUGAMMADEX SODIUM 500 MG/5 ML VIAL As Ordered ONE (15:50)
[2025-03-26] MEDS ORDERED: KETOROLAC 30 MG/ML 1 ML VIAL As Ordered ONE (15:50)
[2025-03-26] MEDS ORDERED: ONDANSETRON 4MG 2ML VIAL IV PRN (16:10)
[2025-03-26] MEDS ORDERED: MEPERIDINE 25 MG/ML 1 ML VIAL IV PRN (16:10)
[2025-03-26 18:39] VITALS: BP 131/82; TEMP 97.4; O2SAT 98
== END 2025-03-26 19:18 | disposition home or self-care (01) ==
LOC: M SDC 11:28
PROVIDERS: ATTEND Specialist
DX: N80.329 Endometriosis of the posterior cul-de-sac, unspecified depth (principal); R10.2 Pelvic and perineal pain; N80.529 Endometriosis of the sigmoid colon, unspecified depth; K66.0 Peritoneal adhesions (postprocedural) (postinfection); N80.3C2 Endometriosis of the left uterosacral ligament, unspecified depth; K76.0 Fatty (change of) liver, not elsewhere classified; J45.909 Unspecified asthma, uncomplicated; Z79.899 Other long term (current) drug therapy; Z79.1 Long term (current) use of non-steroidal anti-inflammatories (NSAID); Z88.8 Allergy status to other drugs, medicaments and biological substances
CPT/HCPCS: 58662; 81025; 85027; 86850; 86900; 86901; J0131; J0665; J1100; J1171; J1308; J1805; J1885; J2175; J2250; J2405; J2765; J3010

== ENCOUNTER → 2025-06-11 | Outpatient (CLI) | payer OTHER ==
[~2025-06-11] MED LIST changes: +OXYC1TAB23 PO; +PROHANCE 279.3MG/ML 15ML VIAL ONE; +PROHANCE 279.3MG/ML 5ML VIAL ONE
== END ==
LOC: M PLAIMG 06:43
PROVIDERS: ATTEND Physician Assistant
DX: H90.42 Sensorineural hearing loss, unilateral, left ear, with unrestricted hearing on the contralateral side (principal)
CPT/HCPCS: 70553; A9579